=== PATIENT | female | born 1970 | race Caucasian/White ===

== ENCOUNTER 2016-10-19 15:55 | Inpatient (IN) | payer OTHER ==
[~2016-10-19] VITALS: Ht 149.9 cm; Wt 37.4 kg
--- NOTE | ~2016-10-19 | DS ---
Unit #: [id number] #: [id number] Patient: VJ MIR [id number] [address] [address] [id number] I MR#: [id number] NAME: VJ MIR ROOM: 57 Age: 46 Sex: F Admission Date: 10/19/2016 : 1970 Discharge Date: Attending Physician: Jami Rodriguez M.D. Primary Care Physician: No Primary Care Physician DISCHARGE SUMMARY DISCHARGE DIAGNOSES 1. Acute hypoxic respiratory failure. 2. Community-acquired pneumonia. 3. History of anxiety. 4. History of depression. 5. Smoking. 6. Hypokalemia. 7. Low vitamin B12 with numbness in the toes. 8. Smoking. 9. Anorexia nervosa. 10. Leukocytosis from pneumonia. ALLERGIES None. DISCHARGE MEDICATIONS 1. Humibid LA 600 p.o. b.i.d. 2. Florastor 250 p.o. b.i.d. 3. Vitamin B12 at 1000 mcg p.o. daily. 4. Augmentin 875 p.o. b.i.d. for seven days. HOSPITALIZATION COURSE A 46 year old admitted because of shortness of breath and cough. Acute hypoxic respiratory failure from pneumonia, currently resolved. She was on 2 L. Pneumonia, community acquired: Chest x-ray shows interstitial diffuse infiltrates right mid and lower lungs. Sputum cultures are pending with some yeast and hyphae. I called the microbiology. They told most likely it is normal respiratory myron. Patient needs to follow with family physician for followup. Smoking: Advised to quite. Anxiety and depression: Stable. DISPOSITION Discharge home. FOLLOWUP Follow with family physician in one to two weeks time. The patient will have chest x-ray PA and lateral in 10 days' time and follow with PCP with results. Also, patient needs to follow with PCP for final sputum culture Unit #: [id number] #: [id number] Patient: VJ MIR report. Patient understands that she needs to follow with PCP. Dictated by... Jessica Reyes TD: 10/21/2016 15:22 JOB #: [id number] DISCHARGE SUMMARY Page 1 of 1 X Jami Rodriguez MD DISCHARGE SUMMARY
--- NOTE | ~2016-10-19 | CR63 ---
[facility] A Service of [facility] RADIOLOGY TEXT RESULTS PATIENT: VJ MIR LOCATION: [facility] 577-01 : [birth year] UNIT #: [id number] AGE: [address]: Jami Rodriguez MD SEX: F ORDER DR: [id number] [place] [id number] I MR#: [id number] Acc #: [id number] NAME: VJ MIR : 1970 SEX: F STUDY DATE/TIME: 10/19/2016 16:55 UNIT: SEDOF ROOM: [facility] STUDY DESCRIPTION: CR Chest 2 View Attending Physician: Alexandra Gibbs M.D. Ordering Physician: Serafin Faulkner M.D. Primary Care Physician: Primary Care Physician No MEDICAL IMAGING REPORT This report is preliminary unless electronic signature is present. EXAM PA and lateral chest HISTORY Cough and chest pain for 1 week. FINDINGS Two views of the chest demonstrate moderate diffuse interstitial infiltrate in the right mid and lower lung, greater in the lateral right base and mild additional patchy interstitial infiltrate in the lateral left base. Minimal right pleural effusion. Findings are nonspecific and there are no prior chest x-rays for comparison. Considerations include infectious or inflammatory etiologies. Suggest correlation with the patient's symptoms and short-term followup chest x-ray after appropriate assessment and treatment. Cardiac size and pulmonary vascularity are normal. Dictated by... Dennis Soto M.D. THIS IS AN ELECTRONICALLY VERIFIED REPORT Dennis Soto M.D. at 10/20/2016 2:17 PM DFL/chi TD: 10/20/2016 12:00 JOB #: [id number] MEDICAL IMAGING REPORT Page 1 of 1
--- NOTE | ~2016-10-19 | A ---
[facility] Nutrition Therapy DATE: 10/20/16 Patient: VJ MIR Physician: SID Address: [address] [place] [address] Room/Bed: [address] [place] [address], Zip: [place] [address] Admit Date: 10/19/16 Date of : [birth year] Height: 4 11 Weight: 83 37.8 NUTRITIONAL ASSESSMENT: REASON: Low BMI Admitting dx: 46 y/o female admitted with CAP and acute hypoxic respiratory failure PMH: Depression, anorexia nervosa, anxiety, smoker Anthropometrics: Ht: 59", Wt: 80-83 lbs, BMI: 16 (underweight) Labs: Reviewed; nothing significant Meds: Laxative of choice prn, Zofran prn, Vit B12 I/O & Bowel function: Last BM 10/19 Skin Integrity: No issues, no edema Estimated Nutrition Needs: Increased needs due to underweight status Diet: Regular Assessment: Chart reviewed, events noted. See admitting dx and PMH as stated above. Patient is on 2L nasal cannula, reports illness for approx. 1.5 weeks, found to have community acquired pnemonia. No past weights available, patient is clinically underweight, states she does not weigh herself at home and is unsure of UBW. Has hx of anorexia nervosa that she admits to be continuing to fontanez. Says her clothes do fit looser since being ill recently, reports inconsistent PO intake at home and tries not to eat unhealthy foods. Reports consuming ~50% of breakfast this morning which was slovenian toast and fruit, ate about 75% of lunch today which was roast beef and fruit. Severe muscle/fat loss noted, patient meets criteria for severe PCM. Pt amenable to drinking 1 Ensure clear per day- will order. RD encouraged 3 meals per day, patient agreed. Family present in room for interview. Will follow hospital course. Dx: Severe malnutrition related to chronic illness/anorexia nervosa AEB < 75% energy needs for > 1 month, suspected weight loss of unknown amount, BMI 16, obvious muscle/fat loss. Intervention: Liberalize diet, daily Ensure clear, MVI Monitoring, Evaluation and Goals: 1. PO intake > 50% of meals TID + 100% daily Ensure clear. 2. Gradual weight gain towards a healthy BMI range. [facility] Nutrition Therapy DATE: 10/20/16 Patient: VJ MIR Physician: SID Address: [address] [facility] Room/Bed: [address] [place] [address], Zip: [place] [phone] Admit Date: 10/19/16 Date of : [birth year] Height: 4 11 Weight: 83 37.8 3. Prevent/correct micro/macro nutrient deficiencies (add MVI with minerals). Monitor: per protocol, criteria to determine if above goals met Recommendations: 1. Continue regular diet, encourage adequate oral intake. RD ordering mixed santoyo Ensure clear daily to help meet increased kcal/protein needs. Patient unwilling to drink greater than 1 per day. 2. Weigh q 3 days for monitoring purposes as the patient is underweight. 3. Please add a daily MVI with minerals. 4. Suggest psych consult due to active anorexia nervosa. 5. Pt meets criteria for severe protein calorie malnutrition (see further documentation next page). Will follow Mild-moderate nutrition risk Respectfully, Jerilyn Bowen RD, LD [facility] cc: client file
--- NOTE | ~2016-10-19 | EKG ---
PATIENT: VJ MIR UNIT #: [id number] Ventricular Rate: 117 BPM Atrial Rate: 117 BPM P-R Interval: 126 ms QRS Duration: 70 ms Q-T Interval: 304 ms QTC Calculation(Bezet): 424 ms P [place]: 81 degrees Calculated R [place]: 61 degrees Calculated T [place]: 34 degrees Diagnosis Line: Sinus tachycardia Diagnosis Line: Otherwise normal ECG Diagnosis Line: No previous ECGs available Diagnosis Line: Confirmed by JOE JIMENEZ MD ([id number]) on Diagnosis Line: 10/20/2016 3:50:27 PM INTERPRETING MD: BARBARA BERRIOS
--- NOTE | ~2016-10-19 | MAL ---
[facility] Nutrition Therapy DATE: 10/20/16 Patient: VJ MIR Physician: SID Address: [address] [place] [address] Room/Bed: [address] [place] [address], Zip: [place] [phone] Admit Date: 10/19/16 Date of : [birth year] Height: 4 11 Weight: 83 37.8 PHYSICAL MALNUTRITION ASSESSMENT Energy Intake, Chronic Illness Severely reduced: </=50% needs for >/=1 month Energy Intake Comment: Hx anorexia nervosa, pt reports inconsistent PO intakes not meeting nutritional needs. Weight Loss, Comment: UTD exact % weight loss, pt is unsure of UBW but states clothes have been fitting looser recently. She is clinically underweight. Physical Findings Body Fat and Muscle Mass Severe: (obvious) significant muscle wasting and/or loss of subcutaneous fat Physical Findings Functional Capacity Moderate: (suggested) reduced functional capacity Physical Findings Comment: Prominent orbital hollowing, fat loss over triceps and rib cage. Severe temporal, buccal and interosseous depression with clavicle protrusion. Malnutrition Survey Results: Malnutrition identified Malnutrition Etiology Summary: Chronic illness severe Malnutrition Survey Comment: See full assessment for details, interventions and recommendations. Respectfully, Jerilyn Bowen RD, MAUREEN [facility] cc: client file
--- NOTE | ~2016-10-19 | HP ---
Unit #: [id number] #: [id number] Patient: VJ MIR [id number] [address] [address] [id number] I MR#: [id number] NAME: VJ MIR ROOM: 57 Age: 46 Sex: F Admission Date: 10/19/2016 : 1970 Attending Physician: Alexandra Gibbs M.D. Primary Care Physician: No Primary Care Physician HISTORY AND PHYSICAL CHIEF COMPLAINT Community-acquired pneumonia with acute hypoxic respiratory failure. HISTORY This pleasant 46-year-old female was transferred from the [facility] emergency department for pneumonia. The patient states that she was well until one week prior to admission when she developed symptoms of an upper respiratory tract infection. However, four days ago she developed a deep cough productive of green sputum with worsening dyspnea on exertion, mild wheezing, fevers, and pleuritic chest pain. She went to the [facility] emergency department tonight where her initial O2 saturation was 90% on room air. Chest x-ray shows bilateral pneumonia worse on the right. She was treated with a liter of saline, given a DuoNeb, 100 mg of IV doxycycline, and 1 g of Rocephin. PAST MEDICAL HISTORY 1. Depression. 2. Anorexia nervosa. 3. Anxiety. ALLERGIES None. HOME MEDICATIONS Mucinex. FAMILY HISTORY Negative for heart or lung disease. SOCIAL HISTORY The patient lives with her and two children. She currently is cutting down her smoking, and is now down to five cigarettes daily, does not drink alcohol. REVIEW OF SYSTEMS Review of systems is notable for anorexia, depression, anxiety, cough, wheezing, shortness of breath, fevers, tobacco abuse. All other systems were reviewed and are otherwise negative. PHYSICAL EXAMINATION GENERAL: Pleasant, thin 46-year-old female who currently is in no acute Unit #: [id number] #: [id number] Patient: VJ MIR distress. VITAL SIGNS: Temperature 98.6. Pulse 120. Respirations 24. Blood pressure 146/103. O2 saturation was 98% on room air. HEENT: Eyes PERRLA, extraocular muscles are intact. Pharynx is benign except tongue looks to be somewhat red. NECK: Supple, without adenopathy or thyromegaly. CHEST: With anterior right crackles, mild end-expiratory wheeze. CARDIAC: Normal S1 and S2. No definite murmur. ABDOMEN: Bowel sounds are present. Mild left upper quadrant tenderness, without rebound or guarding. No hepatosplenomegaly or masses. EXTREMITIES: Without cyanosis, clubbing or edema. Pedal pulses are present. NEUROLOGIC EXAM: Patient is awake, alert, oriented. Cranial nerves are intact. Equal strength throughout. DIAGNOSTIC STUDIES LABORATORY: Hematocrit is 38.8, white blood count is 20, MCV is 77.1, platelet count is 479. SMA-12: Glucose 117, sodium 134, potassium 3.3, chloride is 92, albumin is 3.2, ALT is 48, alkaline phosphatase 132. BNP is 117. Lactic acid 1.1. IMAGING: Chest x-ray bilateral infiltrates, mainly right mid/lower lung, especially the lateral right base and lateral left base. Minimal right pleural effusion. CARDIOVASCULAR: EKG sinus tachycardia, rate 117, otherwise normal. ASSESSMENT 1. Community-acquired pneumonia with acute hypoxic respiratory failure. 2. History of depression and anorexia nervosa. 3. Tobacco abuse. 4. Hypokalemia. 5. Patient does make mention of numbness over her toes bilaterally in review of systems. PLANS 1. Rocephin, Zithromax, bronchodilators and Mucolytics. 2. Check blood and sputum cultures. 3. Check B12 level. 4. Replace potassium and heck magnesium. 5. Smoking cessation counseling 6. DVT prophylaxis. Dictated by Alla Daily M.D. AML/cf TD: 10/19/2016 21:34 JOB #: [id number] Unit #: [id number] #: [id number] Patient: VJ MIR HISTORY AND PHYSICAL Page 1 of 1 X Alla Daily MD X HISTORY AND PHYSICAL
[2016-10-19] MEDS ORDERED: MUCINEX100 MG (16:10)
[2016-10-19 16:47] LABS: BASOPHIL# 0.1 X10e3 (0-0.3); BASOPHIL% 0.4 % (0-2.5); EOSINOPHIL# 0.1 X10e3 (0-0.7); EOSINOPHIL% 0.3 % (0.0-7.0); HEMATOCRIT 38.8 % (35.0-45.0); HEMOGLOBIN 12.4 gm/dL (12.0-16.0); LYMPHOCYTE# 1.9 X10e3 (1.0-3.5); LYMPHOCYTE% 9.6 % (17.0-45.0); MEAN CELL VOLUME 77.1 FL (83-96); MEAN CORPUSCULAR HEMOGLOBIN 24.7 PG (28-34); MEAN PLATELET VOLUME 7.7 FL (6.5-11.5); MONOCYTE# 1.5 X10e3 (0-1.0); MONOCYTE% 7.5 % (3.0-12.0); NEUTROPHIL# 16.3 X10e3 (1.5-7.1); NEUTROPHIL% 82.2 % (40-75); PLATELET COUNT 459 X10e3 (140-420); RED BLOOD COUNT 5.04 X10e (3.90-5.30); RED CELL DISTRIBUTION WIDTH 20.5 % (11.0-15.5); WHITE BLOOD COUNT 19.9 X10e3 (4.0-10.5)
[2016-10-19 16:48] LABS: DIFF IND NO
[2016-10-19 17:04] LABS: ALBUMIN SERUM 3.2 g/dL (3.5-5.0); ALKALINE PHOSPHATASE 132 U/L (32-92); ALT (SGPT) 48 U/L (10-40); AST (SGOT) 42 U/L (10-42); BILIRUBIN,TOTAL 0.1 mg/dL (0.2-2.0); BLOOD UREA NITROGEN 5 mg/dL (9-23); CALCIUM SERUM 8.9 mg/dL (8.4-10.2); CARBON DIOXIDE 30 mmol/L (22-31); CHLORIDE 92 mmol/L (100-111); CREATININE SERUM 0.5 mg/dL (0.6-1.4); GLOM FILT RATE Estimated 114.5 mL/min (>60); GLUCOSE FASTING 117 mg/dL (70-110); POTASSIUM 3.3 mmol/L (3.5-5.1); PROTEIN TOTAL SERUM 7.7 g/dL (6.0-8.3); SODIUM 134 mmol/L (135-145)
[2016-10-19 17:10] LABS: BILIRUBIN, DIRECT <0.1 mg/dL (0.0-0.2)
[2016-10-20 06:03] LABS: BASOPHIL# 0.1 X10e3 (0-0.3); BASOPHIL% 0.4 % (0-2.5); EOSINOPHIL% 0.1 % (0.0-7.0); HEMATOCRIT 34.7 % (35.0-45.0); HEMOGLOBIN 10.7 gm/dL (12.0-16.0); LYMPHOCYTE# 1.5 X10e3 (1.0-3.5); LYMPHOCYTE% 8.1 % (17.0-45.0); MEAN CELL VOLUME 78.2 FL (83-96); MEAN CORPUSCULAR HEMOGLOBIN 24.1 PG (28-34); MEAN CORPUSCULAR HGB CONC 30.8 g/dL (30-36); MEAN PLATELET VOLUME 8.4 FL (6.5-11.5); MONOCYTE# 1.2 X10e3 (0-1.0); MONOCYTE% 6.3 % (3.0-12.0); NEUTROPHIL# 15.7 X10e3 (1.5-7.1); NEUTROPHIL% 85.1 % (40-75); PLATELET COUNT 436 X10e3 (140-420); RED BLOOD COUNT 4.43 X10e (3.90-5.30); RED CELL DISTRIBUTION WIDTH 20.2 % (11.0-15.5); WHITE BLOOD COUNT 18.5 X10e3 (4.0-10.5)
[2016-10-20 06:07] LABS: DIFF IND YES
[2016-10-20 06:44] LABS: CALCIUM SERUM 8.4 mg/dL (8.4-10.2); CARBON DIOXIDE 30 mmol/L (22-31); CHLORIDE 98 mmol/L (100-111); CREATININE SERUM 0.5 mg/dL (0.6-1.4); GLOM FILT RATE Estimated 114.5 mL/min (>60); GLUCOSE FASTING 102 mg/dL (70-110); MAGNESIUM 1.6 mg/dL (1.6-3.0); POTASSIUM 3.6 mmol/L (3.5-5.1); SODIUM 137 mmol/L (135-145)
[2016-10-20 06:50] LABS: BLOOD UREA NITROGEN <5 mg/dL (9-23)
[2016-10-20 07:03] LABS: ANISOCYTOSIS SL; NUCLEATED RED BLOOD CELL 2 /100 ([, 0]); OVALOCYTES PRESENT; PLATELET ESTIMATE INCREASED (NORMAL); POIKILOCYTOSIS SL
[2016-10-20 07:04] LABS: TARGET CELLS SL
[2016-10-21 05:55] LABS: HEMATOCRIT 35.9 % (35.0-45.0); HEMOGLOBIN 11.2 gm/dL (12.0-16.0); MEAN CELL VOLUME 77.4 FL (83-96); MEAN CORPUSCULAR HEMOGLOBIN 24.2 PG (28-34); MEAN CORPUSCULAR HGB CONC 31.3 g/dL (30-36); MEAN PLATELET VOLUME 8.1 FL (6.5-11.5); RED BLOOD COUNT 4.63 X10e (3.90-5.30); RED CELL DISTRIBUTION WIDTH 20.4 % (11.0-15.5); WHITE BLOOD COUNT 20.7 X10e3 (4.0-10.5)
[2016-10-21] MEDS ORDERED: VITAMIN B12 PO (13:17)
[2016-10-21] MEDS ORDERED: AUGMENTIN PO (13:18)
[2016-10-21] MEDS ORDERED: PROBIOTIC250 MG PO (13:25)
[2016-10-21] MEDS ORDERED: HUMIBID-LA600 MG PO (14:07)
== END 2016-10-21 15:35 | disposition home or self-care (01) | DRG 193 ==
LOC: SED 15:55 → SEDOF 18:49 → C5C 18:49 → SEDOF 20:31 → C5C 20:31 → SEDOF 21:00 → C5C 10-20 08:34
PROVIDERS: Emergency Medicine; Internal Medicine
DX: J18.9 Pneumonia, unspecified organism (principal); J96.01 Acute respiratory failure with hypoxia; F50.00 Anorexia nervosa, unspecified; Z68.1 Body mass index [BMI] 19.9 or less, adult; F32.9 Major depressive disorder, single episode, unspecified; F41.9 Anxiety disorder, unspecified; F17.210 Nicotine dependence, cigarettes, uncomplicated; E87.6 Hypokalemia; R20.0 Anesthesia of skin; E53.8 Deficiency of other specified B group vitamins; D72.829 Elevated white blood cell count, unspecified; Z71.6 Tobacco abuse counseling
CPT/HCPCS: 71020; 80048; 80076; 82607; 83605; 83735; 83880; 85025; 85027; 87070; 87205; 93005; 94640; 94760; 96360; 99291; J0456; J0696; J1644; J3420